=== PATIENT | male | born 1990 | race Caucasian/White ===

== ENCOUNTER 2016-12-09 01:02 | Emergency (ER) | payer SELFPAY ==
[2016-12-09] MEDS ORDERED: Sodium Chloride 0.9% 1,000 ML IV ONE (01:53)
--- NOTE | 2016-12-09 01:54 | C.PDOC ---
History Of Present Illness 26 yo male w/o significant PMHx come in for evaluation of diffuse abdominal pain gradually developed for past 3 days associated with few episodes of vomiting , decrease appetite. Pt reports, pain is constant, no change with food intake. Otherwise, pt denies fever, chills, recent abx use, and sore throat, CP , SOB, dyspnea, diaphoresis, hematemesis, melena, hematoschezia, back pain, UTI sx. Ambulate to ED for evaluation, not in any apparent distress. Time Seen by Provider: 12/09/16 01:33 Chief Complaint (Nursing): Abdominal Pain History Per: Patient Past Medical History Reviewed: Historical Data, Nursing Documentation, Vital Signs Vital Signs: Last Vital Signs Temp 97.8 F 12/09/16 01:19 Pulse 72 12/09/16 01:19 Resp 20 12/09/16 01:19 BP 134/85 12/09/16 01:19 Pulse Ox 95 12/09/16 02:28 - Medical History PMH: No Chronic Diseases Surgical History: No Surg Hx - [facility] Procedures URETERAL CATHETERIZATION (11/25/14) URETEROSCOPY (11/25/14) Family History: States: No Known Family Hx - Social History Hx Tobacco Use: Yes Hx Alcohol Use: No Hx Substance Use: No - Immunization History Hx Tetanus Toxoid Vaccination: No Hx Influenza Vaccination: No Hx Pneumococcal Vaccination: No Review Of Systems Except As Marked, All Systems Reviewed And Found Negative. Constitutional: Negative for: Fever, Chills ENT: Negative for: Throat Pain Cardiovascular: Negative for: Chest Pain Respiratory: Negative for: Cough, Shortness of Breath, Wheezing Gastrointestinal: Positive for: Nausea, Vomiting, Abdominal Pain. Negative for : Diarrhea, Melena, Hematochezia, Hematemesis Genitourinary: Negative for: Dysuria, Incontinence Musculoskeletal: Negative for: Neck Pain, Back Pain Skin: Negative for: Rash Neurological: Negative for: Weakness, Numbness, Headache Physical Exam - Physical Exam Appears: Well, Non-toxic, No Acute Distress Skin: Normal Color, Warm, Dry Throat: No Erythema, No Exudate, No Drooling Neck: Supple Cardiovascular: Rhythm Regular Respiratory: No Stridor, No Wheezing Gastrointestinal/Abdominal: Soft, Tenderness (diffuse lower tenderness), No Distention, No Guarding Back: No CVA Tenderness Extremity: Normal ROM Neurological/Psych: Oriented x3, Normal Speech ED Course And Treatment - Laboratory Results Result Diagrams: 12/09/16 02:17 12/09/16 02:17 Lab Interpretation: No Acute Changes O2 Sat by Pulse Oximetry: 95 Pulse Ox Interpretation: Normal Progress Note: On re-eavl, pt is awake, playful, not in any apparent distress. Afebrile, hemodynamicaly stable. NOn-toxic. PulseOx 95% RA. ENT: no acute findings. Uvula midline. Lungs: CTA B/L, BS equal B/L. Abd: benign, (-) guarding, (-) rebound. Back: (-) CVA tenderness. Blood work review and appears noraml. Imaging review and appears without acute abnormalities, diverticulosis. Pt has clinical finding c/w epigastric pain, vomiting. Pt advised on course of ds. ref. to F/u with PMD, GI in 2-3 days for re-eval. return if any new changes. Disposition Counseled Patient/Family Regarding: Studies Performed, Diagnosis, Need For Followup, Rx Given - Disposition Referrals: [facility] [Outside] Disposition: HOME/ ROUTINE Disposition Time: 04:39 Condition: STABLE Additional Instructions: Encourage fluids Diet restriction, avoid greasy food, spicy food for 1-2 weeks Take medication as prescribed Follow up with PMD and GI in 2-3 days for re-evaluation. Return to ED if any worsening or new changes. Prescriptions: Pantoprazole Sodium [Protonix] 20 mg PO DAILY #10 ect Sucralfate [Carafate] 1 gm PO TID #10 tablet Instructions: Epigastric Pain (ED), Diverticulosis (ED), Diverticulitis Diet ( ED) Print Language: KHMER - Clinical Impression Clinical Impression: Epigastric pain, Diverticulosis, Vomiting
[2016-12-09 02:19] LABS: BASO % 0.5 % (0.0-2.0); EOS # 0.1 K/uL (0.0-0.7); EOS % 0.7 % (0.0-4.0); HEMATOCRIT 45.4 % (35.0-51.0); LYMPH # 2.3 K/uL (1.0-4.3); LYMPH % 27.6 % (20.0-40.0); MEAN CELL VOLUME 86.4 fL (80.0-94.0); MEAN CORPUSCULAR HEMOGLOBIN 29.7 pg (27.0-31.0); MEAN CORPUSCULAR HGB CONC 34.4 g/dL (33.0-37.0); MONO # 0.8 K/uL (0.0-0.8); MONO % 9.1 % (0.0-10.0); NRBC % 0.1 % (0.0-2.0); RED CELL DISTRIBUTION WIDTH 13.7 % (11.5-14.5); WHITE BLOOD COUNT 8.4 K/uL (4.8-10.8)
[2016-12-09] MEDS ORDERED: Sodium Chloride 0.9% 1,000 ML ONE (02:19)
[2016-12-09 02:36] LABS: CHLORIDE 102 mmol/L (98-107)
[2016-12-09 02:37] LABS: POTASSIUM 3.9 mmol/L (3.6-5.2); SODIUM 137 mmol/L (132-148)
[2016-12-09 02:39] LABS: ALB/GLOB RATIO 1.2 (1.0-2.1); ALKALINE PHOSPHATASE 131 U/L (38-126); ALT/SGPT 69 U/L (21-72); AST/SGOT 26 U/L (17-59); BILIRUBIN,TOTAL 0.7 mg/dL (0.2-1.3); BLOOD UREA NITROGEN 13 mg/dL (9-20); CARBON DIOXIDE 21 mmol/L (22-30); GFR AFRICAN-AMERICAN > 60; GLUCOSE,RANDOM 86 mg/dL (75-110); TOTAL PROTEIN 8.2 g/dL (6.3-8.3)
[2016-12-09 02:40] LABS: CALCIUM 8.4 mg/dl (8.6-10.4)
[2016-12-09] MEDS ORDERED: Iodixanol 320 MG/ML 100 ML BOTTLE IV ONE (03:34)
[2016-12-09 03:35] LABS: RBC URINE 10 /hpf (0-3); URINE BILIRUBIN NEGATIVE (NEGATIVE); URINE BLOOD 2+ (NEGATIVE); URINE COLOR Yellow (YELLOW); URINE GLUCOSE (UA) NORMAL (Normal); URINE KETONE NEGATIVE (NEGATIVE); URINE LEUKOCYTE ESTERASE NEG Leu/uL (Negative); URINE PROTEIN NEGATIVE (NEGATIVE); URINE UROBILINOGEN NORMAL mg/dL (0.2-1.0); WBC URINE < 1 /hpf (0-5)
[2016-12-09 05:33] VITALS: BP 110/67; PULSE 70; RESP 16; TEMP 98.5; O2SAT 98
--- NOTE | 2016-12-09 08:55 | CT ---
PROCEDURE: CT Abdomen and Pelvis with the use of intravenous contrast HISTORY: Abdominal pain COMPARISON: None. TECHNIQUE: Multiple contiguous axial images were performed through the abdomen and pelvis with the use of intravenous contrast. Radiation dose: Total exam DLP = 872 mGy-cm. This CT exam was performed using one or more of the following dose reduction techniques: Automated exposure control, adjustment of the mA and/or kV according to patient size, and/or use of iterative reconstruction technique. FINDINGS: LOWER THORAX: Bibasilar hazy airspace opacities. LIVER: Mild fatty infiltration of the liver. Focal area of low attenuation measuring 1.8 centimeter seen within the medial right hepatic lobe on series 3, image 53 which may represent some focal fatty sparing, clinical correlation. Additional mild heterogeneity of the periphery of the right hepatic lobe, nonspecific. GALLBLADDER AND BILE DUCTS: Unremarkable. PANCREAS: Unremarkable. No gross lesion or ductal dilatation. SPLEEN: Unremarkable. ADRENALS: Unremarkable. No mass. KIDNEYS AND URETERS: Unremarkable. No hydronephrosis. No solid mass. VASCULATURE: Unremarkable. No aortic aneurysm. BOWEL: Unremarkable. No obstruction. No gross mural thickening. Sigmoid diverticulosis. APPENDIX: Unremarkable. Normal appendix. PERITONEUM: Unremarkable. No free fluid. No free air. LYMPH NODES: Shotty lymph nodes in the right nicol abdomen. BLADDER: Unremarkable. REPRODUCTIVE: Unremarkable. BONES: No acute fracture. OTHER FINDINGS: None. IMPRESSION: 1. Bibasilar hazy airspace opacities. This may be secondary to an underlying infectious and or inflammatory process. Clinical correlation. 2. Mild fatty infiltration of the liver. Focal area of low attenuation measuring 1.8 centimeter seen within the medial right hepatic lobe on series 3, image 53 which may represent some focal fatty sparing, clinical correlation. 3. Sigmoid diverticulosis. Additional findings as above. These findings were preliminarily reported at 4:31 a.m. on 12/09/[address] Pennie Mercado from [employer]
== END 2016-12-09 04:50 | disposition home or self-care (01) ==
LOC: C.ER 01:02
DX: K57.30 Diverticulosis of large intestine without perforation or abscess without bleeding (principal); R11.10 Vomiting, unspecified; K57.90 Diverticulosis of intestine, part unspecified, without perforation or abscess without bleeding
CPT/HCPCS: 74177; 80053; 81001; 83690; 85025; 96361; 96374; 96375; 99284; J1885; J2405; J7040; Q9967

== ENCOUNTER 2018-01-12 00:09 | Emergency (ER) | payer SELFPAY ==
[2018-01-12 00:20] VITALS: BP 116/77; PULSE 78; TEMP 98.3; O2SAT 98
--- NOTE | 2018-01-12 01:27 | C.PDOC ---
History Of Present Illness 27 y/o male presents to ED with left foot pain x 9 days and now with similar pain in right foot as well with no injury or trauma. pain starts around mid sole and radiates towards heel. pt seen by pmd who told patient to get xrays of foot, pt taking 1-2 tabs of advil occasionally with no relief in pain. no fever or chills. Time Seen by Provider: 01/12/18 00:44 Chief Complaint (Nursing): Lower Extremity Problem/Injury History Per: Patient History/Exam Limitations: no limitations Current Symptoms Are (Timing): Still Present Severity: Moderate Past Medical History Reviewed: Historical Data, Nursing Documentation, Vital Signs Vital Signs: Last Vital Signs Temp 98.3 F 01/12/18 00:17 Pulse 78 01/12/18 00:17 Resp 18 01/12/18 00:17 BP 116/77 01/12/18 00:17 Pulse Ox 98 01/12/18 01:33 - Medical History PMH: Kidney Stones - [facility] Procedures URETERAL CATHETERIZATION (11/25/14) URETEROSCOPY (11/25/14) Family History: States: Unknown Family Hx - Social History Hx Tobacco Use: Yes Hx Alcohol Use: No Hx Substance Use: No - Immunization History Hx Tetanus Toxoid Vaccination: No Hx Influenza Vaccination: No Hx Pneumococcal Vaccination: No Review Of Systems Constitutional: Negative for: Fever, Chills Musculoskeletal: Positive for: Foot Pain (bilateral) Skin: Negative for: Rash, Bruising Neurological: Negative for: Weakness, Numbness Physical Exam - Physical Exam Appears: Non-toxic, No Acute Distress Skin: Warm, Dry Extremity: Normal ROM, Tenderness (bilateral soles of feet from mid foot to heels. no swelling, erythema or warmth noted. ) Extremity: Bilateral: Atraumatic Pulses: Left Dorsalis Pedis: Normal, Right Dorsalis Pedis: Normal Neurological/Psych: Oriented x3, Normal Speech, Normal Cognition, Normal Motor, Normal Sensation ED Course And Treatment O2 Sat by Pulse Oximetry: 98 Medical Decision Making Medical Decision Making: bilateral foot pain- no trauma; consider heel spur/plantar fasciitis. xray , nsaids, re-eval. 0206 pt reports pain decreased after toradol. no acute findings of xray after my review. Disposition Counseled Patient/Family Regarding: Studies Performed, Diagnosis, Need For Followup - Disposition Referrals: [facility] [Outside] Podiatry Clinic [Outside] Disposition: HOME/ ROUTINE Disposition Time: 02:07 Condition: IMPROVED Additional Instructions: Take ibuprofen 600 mg by mouth every 6 hours for pain if needed. Follow up with podiatry clinic at [facility] (call number for medical clinic and ask for podiatry) or in [place]. Call for appointment. Instructions: Heel Pain (Caused by Plantar Fasciitis) (DC) Forms: [facility] (C[place]ican), General Discharge Instructions - Clinical Impression Clinical Impression: Bilateral foot pain
[2018-01-12 02:34] VITALS: RESP 16
--- NOTE | 2018-01-12 08:32 | RAD ---
Date of service: 01/12/2018 PROCEDURE: Bilateral Feet Radiographs. HISTORY: volar foot pain COMPARISON: None. FINDINGS: BONES: Right Foot: Normal. No fracture. Left Foot: Normal. No fracture. JOINTS: Right Foot: Normal. No osteoarthritis. Left Foot: Normal. No osteoarthritis. SOFT TISSUES: Right Foot: Normal. Left Foot: Normal. OTHER FINDINGS: None. IMPRESSION: Normal radiographs of the feet.
== END 2018-01-12 02:30 | disposition home or self-care (01) ==
LOC: C.ER 00:09
DX: M79.672 Pain in left foot (principal); M79.671 Pain in right foot
CPT/HCPCS: 73620; 96372; 99284; J1885

== ENCOUNTER 2018-01-18 13:55 | Emergency (ER) | payer OTHER ==
[2018-01-18 14:27] VITALS: BMI 31.5
[2018-01-18 14:30] VITALS: BP 124/85; PULSE 89; RESP 18; TEMP 98.4; O2SAT 98
[2018-01-18] MEDS ORDERED: Bacitracin 500 Units/gm Oint Foilpak UD ONE (15:19)
--- NOTE | 2018-01-18 15:26 | C.PDOC ---
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 Bleeding was controlled prior to arrival. Patient is right hand dominant. Tetanus is up to date. Otherwise denies any numbness or tingling. Time Seen by Provider: 01/18/18 15:55 Chief Complaint (Nursing): Abnormal Skin Integrity History Per: Patient History/Exam Limitations: no limitations Onset/Duration Of Symptoms: Hrs Current Symptoms Are (Timing): Still Present Past Medical History Reviewed: Historical Data, Nursing Documentation, Vital Signs Vital Signs: Last Vital Signs Temp 98.4 F 01/18/18 14:27 Pulse 89 01/18/18 14:27 Resp 18 01/18/18 14:27 BP 124/85 01/18/18 14:27 Pulse Ox 98 01/18/18 17:28 - Medical History PMH: Kidney Stones - [facility] Procedures URETERAL CATHETERIZATION (11/25/14) URETEROSCOPY (11/25/14) Family History: States: Unknown Family Hx - Social History Hx Tobacco Use: Yes Hx Alcohol Use: No Hx Substance Use: No - Immunization History Hx Tetanus Toxoid Vaccination: No Hx Influenza Vaccination: No Hx Pneumococcal Vaccination: No Review Of Systems Except As Marked, All Systems Reviewed And Found Negative. Skin: Positive for: Lesions (right thumb laceration) Neurological: Negative for: Weakness, Numbness, Incoordination Physical Exam - Physical Exam Appears: Non-toxic, No Acute Distress Skin: Warm, Dry, No Rash Head: Atraumatic, Normacephalic Eye(s): bilateral: Normal Inspection Oral Mucosa: Moist Neck: Normal ROM, Supple Chest: Symmetrical Extremity: Normal ROM, Capillary Refill (< 2 sec), No Deformity, No Swelling, Other (1 cm laceration to anterior aspect of right thumb, area is tender to palpation) Pulses: Left Radial: Normal, Right Radial: Normal Neurological/Psych: Oriented x3, Normal Speech, Normal Motor, Normal Sensation ED Course And Treatment O2 Sat by Pulse Oximetry: 98 (RA) Pulse Ox Interpretation: Normal Laceration - Laceration Repair right 1st digit Wound Length (In cm): 1 Description Of Wound: Linear Wound Cleansed With: Sterile Saline Anesthesia: Lidocaine 2% Wound Examination: Irrigated With Saline, No FB With Wound Exploration, No Tendon Injury With Wound Exploration Wound Closure: Suture (x3) Suture Technique And Material Used: Interrupted, Nylon (5:0) Wound Complexity: Simple Medical Decision Making Medical Decision Making: Impression: 27 year old with right thumb laceration Plan: --Motrin 600mg PO --Laceration repaired without difficulty Counseled regarding diagnosis and the importance of following up for suture removal. Disposition Counseled Patient/Family Regarding: Diagnosis, Need For Followup - Disposition Referrals: [facility], [Non-Staff] - Disposition: HOME/ ROUTINE Disposition Time: 15:20 Condition: IMPROVED Additional Instructions: SYLVIA CUEVAS, thank you for letting us take care of you today. Your provider was Roney Conti DO and you were treated for LACERATION ON FINGER. The emergency medical care you received today was directed at your acute symptoms. If you were prescribed any medication, please fill it and take as directed. It may take several days for your symptoms to resolve. Return to the Emergency Department if your symptoms worsen, do not improve, or if you have any other problems. Please contact your doctor or call one of the physicians/clinics you have been referred to that are listed on the Patient Visit Information form that is included in your discharge packet. Bring any paperwork you were given at discharge with you along with any medications you are taking to your follow up visit. Our treatment cannot replace ongoing medical care by a primary care provider outside of the emergency department. Thank you for allowing the [facility] team to be part of your care today. KEEP AREA CLEAN AND DRY AT ALL TIMES. Follow up with your doctor in 7 days to have the stitches removed. Instructions: Laceration Repair With Stitches (DC) Forms: [employer] (Occitan), Work Excuse - POA Present On Arrival: Falls Or Trauma - Clinical Impression Clinical Impression: Laceration - Scribe Statement The provider has reviewed the documentation as recorded by the Scribe (Evangelina Durant) Provider Attestation: All medical record entries made by the Scribe were at my direction and personally dictated by me. I have reviewed the chart and agree that the record accurately reflects my personal performance of the history, physical exam, medical decision making, and the department course for this patient. I have also personally directed, reviewed, and agree with the discharge instructions and disposition.
== END 2018-01-18 16:06 | disposition home or self-care (01) ==
LOC: C.ER 13:55
DX: S61.011A Laceration without foreign body of right thumb without damage to nail, initial encounter (principal); X58.XXXA Exposure to other specified factors, initial encounter; Z72.0 Tobacco use

== ENCOUNTER 2018-01-27 11:30 | Emergency (ER) | payer OTHER ==
[2018-01-27 11:31] VITALS: BMI 31.5
[2018-01-27 11:51] VITALS: BP 112/69; PULSE 79; TEMP 98; O2SAT 98
--- NOTE | 2018-01-27 12:26 | C.PDOC ---
History Of Present Illness 27 year old male presents to the ED for suture removal from his right thumb. Patient feels like his right thumb has become more swollen over the past two days. He denies fever, chills, or discharge. Time Seen by Provider: 01/27/18 11:56 Chief Complaint (Nursing): Suture/Staple Removal History Per: Patient History/Exam Limitations: no limitations Onset/Duration Of Symptoms: Days Ago Current Symptoms Are (Timing): Still Present Additional History Per: Patient Past Medical History Reviewed: Historical Data, Nursing Documentation, Vital Signs Vital Signs: Last Vital Signs Temp 98.0 F 01/27/18 11:47 Pulse 79 01/27/18 11:47 Resp 18 01/27/18 12:56 BP 112/69 01/27/18 11:47 Pulse Ox 98 01/27/18 21:46 - Medical History PMH: Kidney Stones Surgical History: No Surg Hx - [facility] Procedures URETERAL CATHETERIZATION (11/25/14) URETEROSCOPY (11/25/14) Family History: States: Unknown Family Hx - Social History Hx Tobacco Use: Yes Hx Alcohol Use: No Hx Substance Use: No - Immunization History Hx Tetanus Toxoid Vaccination: Yes Hx Influenza Vaccination: No Hx Pneumococcal Vaccination: No Review Of Systems Constitutional: Negative for: Fever, Chills Skin: Positive for: Other (swelling to right thumb, suture removal ) Physical Exam - Physical Exam Appears: Non-toxic, No Acute Distress Skin: Normal Color, Warm, Dry Extremity: Normal ROM, Capillary Refill (less than 2 seconds ), Other (mild swelling to volar aspect of right thumb. no erythema or drainage ) Neurological/Psych: Oriented x3, Normal Speech, Normal Cognition ED Course And Treatment O2 Sat by Pulse Oximetry: 98 (on RA) Pulse Ox Interpretation: Normal Medical Decision Making Medical Decision Making: Three sutures removed without difficulty by me. Bacitracin TOP applied. Disposition - Disposition Referrals: [facility] at [facility] [Outside] Disposition: HOME/ ROUTINE Disposition Time: 12:22 Condition: GOOD Additional Instructions: Return if worsened. Prescriptions: Bacitracin Ointment [Bacitracin] 30 gm TOP BID #1 tube Cephalexin [Keflex] 1,000 mg PO BID #40 capsule Instructions: Stitches Removal Forms: [employer] (Yoruba) - Clinical Impression Clinical Impression: Removal of suture - PA / CLUB DIRECTOR / Resident Statement MD/DO has reviewed & agrees with the documentation as recorded. - Scribe Statement The provider has reviewed the documentation as recorded by the Scribe (Petty Aviles) All medical record entries made by the Scribe were at my direction and personally dictated by me. I have reviewed the chart and agree that the record accurately reflects my personal performance of the history, physical exam, medical decision making, and the department course for this patient. I have also personally directed, reviewed, and agree with the discharge instructions and disposition.
[2018-01-27] MEDS ORDERED: Bacitracin 500 Units/gm Oint Foilpak UD TOP ONE (12:27)
[2018-01-27] MEDS ORDERED: Bacitracin 500 Units/gm Oint Foilpak UD ONE (12:43)
[2018-01-27 12:57] VITALS: RESP 18
== END 2018-01-27 12:56 | disposition home or self-care (01) ==
LOC: C.ER 11:30
DX: Z48.02 Encounter for removal of sutures (principal)